=== PATIENT | female | born 1980 | race Caucasian/White ===

== ENCOUNTER 2018-03-17 03:11 | Inpatient (IN) ==
[~2018-03-17 03:11] MED LIST: Lactated Ringers-OB Dept 2,000 ML ONE; Oxytocin 20 Units + LR 20 UNIT/1,000 ML BAG IV ONE
[2018-03-17] MEDS ORDERED: Lidocaine 1% 10 MG/ML - 20 ML VIAL SUBCUT PRN (03:38)
[2018-03-17] MEDS ORDERED: METHYLERGONOVINE MALEATE 0.2 MG/1 ML VIAL IM PRN (03:38)
[2018-03-17] MEDS ORDERED: FAMOTIDINE 20 MG/2 ML VIAL IVP PRN ×2 (03:38)
[2018-03-17] MEDS ORDERED: CALCIUM CARBONATE 500 MG (TUMS) CHEWABLE TABLET PO PRN ×2 (03:38→12:31)
[2018-03-17] MEDS ORDERED: Carboprost Inj 250 MCG/ML AMP IM PRN (03:38)
[2018-03-17] MEDS ORDERED: fentaNYL Inj 100 MCG/2 ML VIAL IV PRN (03:38)
[2018-03-17] MEDS ORDERED: Metoclopramide Inj 10 MG/2 ML VIAL IV PRN (03:38)
[2018-03-17] MEDS ORDERED: ePHEDrine Inj 50 MG/ML AMP IVP PRN (03:38)
[2018-03-17] MEDS ORDERED: OXYTOCIN 10 UNIT/1 ML IM PRN (03:38)
[2018-03-17] MEDS ORDERED: CefOXitin Inj 2 GM in Sodium Chloride 0.9% 100 ML IV PRN (03:38)
[2018-03-17] MEDS ORDERED: Nalbuphine Inj 20 MG/ML Ampule IVP PRN ×2 (03:38→12:31)
[2018-03-17] MEDS ORDERED: NALOXONE 0.4 MG/1 ML VIAL IVP PRN (03:38)
[2018-03-17] MEDS ORDERED: TERBUTALINE SULFATE 1 MG/1 ML SDV SUBCUT PRN (03:38)
[2018-03-17] MEDS ORDERED: ONDANSETRON 4 MG/2 ML VIAL IVP PRN ×2 (03:38→12:31)
[2018-03-17] MEDS ORDERED: MISOPROSTOL 200 MCG TABLET RECTAL PRN (03:38)
[2018-03-17] MEDS ORDERED: CITRIC ACID/SODIUM CITRATE 30 ML CUP PO PRN (03:38)
[2018-03-17] MEDS ORDERED: diphenhydrAMINE 50 MG/1 ML VIAL IVP PRN ×2 (03:38→12:31)
[2018-03-17] MEDS ORDERED: Naloxone Inj 0.01 MG in Sodium Chloride 0.9% vial 1 ML IVP PRN (03:38)
[2018-03-17] MEDS ORDERED: Phenylephrine Inj 50 MCG in Sodium Chloride 0.9% vial 0.5 ML IVP PRN (03:38)
[2018-03-17] MEDS ORDERED: LIDOCAINE W/ SODIUM BICARB 0.5 ML SYR SUBD PRN (03:38)
[2018-03-17] MEDS ORDERED: LIDOCAINE HCL 2 % 10 ML JELLY URO-JECT TOPICAL PRN ×2 (03:38→12:31)
[2018-03-17] MEDS ORDERED: BUTORPHANOL TARTRATE 2 MG/1 ML VIAL IVP PRN (03:38)
[2018-03-17] MEDS: Lactated Ringers-OB Dept 1,000 ML PRIMARY IV SCH ×2 (03:45→14:29)
[2018-03-17] MEDS ORDERED: Oxytocin 20 Units + LR 20 UNIT/1,000 ML BAG IV SCH ×3 (03:45→12:31)
[2018-03-17 03:49] LABS: Hematocrit [HCT] 44.2 % (37.0-47.0); Hemoglobin [HGB] 15.3 g/dL (12.0-16.0); MEAN CORPUSCULAR HEMOGLOBIN 30.9 PG (27-31); MEAN CORPUSCULAR HGB CONC 34.6 g/dL (33-37); MEAN CORPUSCULAR VOLUME 89.3 FL (81-99); MEAN PLATELET VOLUME 11.1 FL (7.4-12.2); RED BLOOD COUNT 4.95 10^6/uL (4.20-5.40)
[2018-03-17] MEDS ORDERED: OXYMETAZOLINE 0.05% 15 ML NASAL SPRAY ENOS PRN (06:45)
[2018-03-17] MEDS: GUAIFENESIN 600 MG TABLET PO SCH ×3 (07:01→20:29)
--- NOTE | 2018-03-17 10:20 | OB.PROGRES ---
Date of Service: 03/17/18 Time of Service: 10:20 Interval History: Pt is a 37 yo at 40 1/7 weeks by early u/s who presented this morning with spontaneous rupture of membranes at home. Fluid was clear. Not really having a lot of pain upon admission, she is becoming more uncomfortable with time. Denies any need for pain medications. Her has been complicated by AMA, declined genetic screening. She has had 5 previous uncomplicated vaginal deliveries. She does note today that she has been sick with URI sx for the past 5 days, cough, nasal congestion. Did have some diarrhea yesterday. Objective - Cervical Exam Cervical Exam: 6-/50/-2 per RN at 0800 [place]: contractions every 3-4 minutes, palpating moderate. Heart Rate: 125-135, moderate variability, no decelerations noted. Heart Rate Interpretation Category: Category I - Labs CBC and BMP: 03/17/18 03:30 - Vital Signs Last Taken Vital Signs: Vital Signs - Last Taken Temperature 97.5 F 03/17/18 05:00 Pulse Rate 71 03/17/18 05:00 Respiratory Rate 16 03/17/18 05:00 Blood Pressure 128/90 03/17/18 05:00 Pulse Ox 99 03/17/18 05:00 Assessment and Plan - Patient Problems (1) Active labor at term Current Visit: Yes Status: Acute - Assessment / Plan Additional Assessment/Plan Details: -pt progressing well on her own. -GBS negative. -leaking clear fluid. -denies need for pain meds at this time. -anticipate normal vaginal delivery.
[2018-03-17] MEDS ORDERED: Ondansetron ODT Tab 4 MG TAB PO PRN (12:31)
[2018-03-17] MEDS ORDERED: diphenhydrAMINE 25 MG CAPSULE PO PRN (12:31)
[2018-03-17] MEDS ORDERED: ACETAMINOPHEN 325 MG TABLET PO PRN (12:31)
[2018-03-17] MEDS ORDERED: DIPH,PERTUSS,TET(ADACEL) VAC/PF 0.5 ML (Tdap) IM ONE (12:31)
[2018-03-17] MEDS ORDERED: IBUPROFEN 800 MG TABLET PO PRN (12:31)
[2018-03-17] MEDS ORDERED: HYDROcodone-APAP 5 MG -325 MG TABLET PO PRN (12:31)
[2018-03-17] MEDS ORDERED: LANOLIN HPA 40 GM TUBE TOPICAL PRN (12:31)
[2018-03-17] MEDS ORDERED: GLYCERIN/WITCH HAZEL 1 BOX TOPICAL PRN (12:31)
[2018-03-17] MEDS ORDERED: BENZOCAINE/MENTHOL SPRAY 56 GM BOTTLE TOPICAL PRN (12:31)
--- NOTE | 2018-03-17 12:37 | OB.DEL.SUM ---
Delivery Note Delivery Summary: Pt is a 37 yo G6 now P6 at 40 1/7 weeks by early u/s who presented with SROM at 0300 this morning at home. Fluid was clear. GBS negative. She progressed on her own, with no pain medications, to ant lip/100/-1 at 1057. She rolled to her left side x 1 contraction and baby was then . She was rolled back to semi- fowlers and the nurse delivered the baby's head while I got gloves on. I delivered the baby's shoulders and remainder of the baby without issues. Her nose and mouth were suctioned with the bulb suction and she was placed on mom's chest. Cord clamping was delayed x 60 seconds. Cord blood and cord gases were obtained. The cord was then doubly clamped by myself and cut by the father of the baby. Time of delivery was 1100. The placenta delivered spontaneously and intact, with a 3 vessel cord, at 1112. The vagina and perineum were examined and no lacerations were noted. Apgars were 6 at 1 minute and 9 at 5 minutes. Baby weighed 7#6oz. Both mom and baby tolerated delivery well and are in stable condition at this time. EBL 250 cc. - Patient Problems (1) Active labor at term Current Visit: Yes Status: Acute
[2018-03-17] MEDS ORDERED: ALBUTEROL SULFATE 2.5 MG/3 ML NEB PRN (17:44)
[2018-03-17] MEDS: DOCUSATE 100 MG CAPSULE PO SCH (20:30)
[2018-03-18 01:50] VITALS: BP 124/82; RESP 16; TEMP 98.3; O2SAT 98
[2018-03-18 04:26] LABS: Hematocrit [HCT] 38.9 % (37.0-47.0); Hemoglobin [HGB] 12.8 g/dL (12.0-16.0); MEAN CORPUSCULAR HGB CONC 32.9 g/dL (33-37); MEAN CORPUSCULAR VOLUME 91.3 FL (81-99); RED BLOOD COUNT 4.26 10^6/uL (4.20-5.40)
[2018-03-18] MEDS: DOCUSATE 100 MG CAPSULE PO SCH (08:54)
[2018-03-18] MEDS: GUAIFENESIN 600 MG TABLET PO SCH (08:54)
[2018-03-18] MEDS ORDERED: Prenatal Multivitamin Tab 1 TAB TAB PO SCH (09:00)
--- NOTE | 2018-03-26 09:44 | OB.PROGRES ---
Subjective Post Day: 1 Pain Management: PO [place] Catheter: No Flatus: Yes Lochia Color: Rubra/Red Scant < 10 ml Diet: Regular Feeding Method: Exculsively Ambulating: Yes Objective - General General Appearance: POSITIVE: No Acute Distress, Cooperative - Cardiovacular Cardiovascular Exam: POSITIVE: RRR, No Murmur, No Clicks Edema: +1 Pedal Edema Extremities: Negative Larisa's - Bilaterally - Respiratory Respiratory Exam: POSITIVE: Clear to Auscultation - Bilaterally, Breathing Non Labored - Abdomen Bowel Sounds: Present Assesstment / Plan (1) Active labor at term Status: Resolved (2) Status post normal vaginal delivery Status: Acute Assessment / Plan: -breast feeding going well. -rubella immune. -rh positive blood type. -will likely d/c home later today. F/u in the office as scheduled.
== END 2018-03-18 12:30 | disposition home or self-care (01) | DRG 807 ==
LOC: OBOP 03:11 → OBIP 03:46
PROVIDERS: ADMIT Family Medicine; ATTEND Family Medicine